=== PATIENT | female | born 1985 | race Caucasian/White ===

== ENCOUNTER 2016-04-07 12:49 | Observation (INO) | payer BC, MEDICAID ==
[2012-07-22 23:50] VITALS: O2SAT 99
[2016-04-07] MEDS ORDERED: SODIUM CHLORIDE 0.9% 500 ML 500 ML IV ONE (13:01)
[2016-04-07] MEDS ORDERED: SODIUM CHLORIDE 0.9% FLUSH 10 ML SOL IV SCH (13:15)
[2016-04-07 13:40] LABS: BASOPHILS % (AUTO) 1 % (0-3); EOSINOPHILS % (AUTO) 1 % (0-9); HEMATOCRIT 30 % (35-47); MEAN CORPUSCULAR HGB CONC 35.8 gm/dl (32.0-36.0); MEAN CORPUSCULAR VOLUME 88 fL (81-99); NEUTROPHILS % (AUTO) 80.7 % (37-80)
[2016-04-07 13:50] VITALS: PULSE 88; RESP 20
[2016-04-07 14:04] LABS: ALBUMIN 2.9 gm/dl (3.4-5.0); CALCIUM 8.4 mg/dl (8.5-10.1); POTASSIUM 3.9 mMol/L (3.5-5.1)
[2016-04-07 15:16] VITALS: BP 120/71; TEMP 98.2
== END 2016-04-07 15:00 | disposition home or self-care (01) ==
LOC: OB 12:49
PROVIDERS: ADMIT Family Medicine; ATTEND Family Medicine
DX: O47.1 False labor at or after 37 completed weeks of gestation (principal); Z3A.28 28 weeks gestation of pregnancy
CPT/HCPCS: 36415; 59025; 80053; 85025

== ENCOUNTER 2017-07-20 21:57 | Emergency (ER) | payer OTHER ==
[2017-07-20 22:06] VITALS: RESP 20; TEMP 97.3
[2017-07-20] MEDS ORDERED: BACITRACIN 500 U/GM OIN TOP ONE ×2 (22:25→22:28)
[2017-07-20] MEDS ORDERED: KETOROLAC TROMETHAMINE 30 MG/ML SOL IM ONE (22:27)
[2017-07-20] MEDS ORDERED: KETOROLAC TROMETHAMINE 30 MG/ML SOL ONE (22:29)
[2017-07-20] MEDS ORDERED: ONDANSETRON 4 MG ODT BU ONE (22:30)
[2017-07-20] MEDS ORDERED: ONDANSETRON 4 MG ODT ONE (22:31)
[2017-07-20 22:51] VITALS: BP 114/85; PULSE 82; O2SAT 99
== END 2017-07-20 22:40 | disposition home or self-care (01) ==
LOC: ED 21:57
DX: S61.111A Laceration without foreign body of right thumb with damage to nail, initial encounter (principal)
CPT/HCPCS: 96372; 99282; 99283; J1885; A6402; A9270-GY

== ENCOUNTER 2017-12-31 13:28 | Emergency (ER) | payer OTHER ==
[2017-12-31 13:39] VITALS: RESP 18
[2017-12-31 13:47] LABS: APPEARANCE,URINE Slightly Cloudy; BILIRUBIN,URINE NEGATIVE (NEGATIVE); COLOR,URINE Yellow; GLUCOSE, URINE (UA) NEGATIVE (NEGATIVE); KETONES,URINE NEGATIVE (NEGATIVE); LEUKOCYTE ESTERASE ,URINE NEGATIVE (NEGATIVE); NITRATE,URINE NEGATIVE (NEGATIVE); OCCULT BLOOD,URINE NEGATIVE (NEG-TRACE); PH,URINE 8.5; UROBILINOGEN,URINE 0.2 (0.2-1.0 EU)
[2017-12-31] MEDS: SODIUM CHLORIDE 0.9% FLUSH 10 ML SOL IV PRN ×2 (13:50→17:11)
[2017-12-31] MEDS ORDERED: HYDROMORPHONE 1 MG/ML SYRINGE ONE (13:54)
[2017-12-31 14:00] LABS: BACTERIA TRACE (< 1+); CRYSTALS NEGATIVE (0-3 AVE/HPF); EPITHELIAL CELLS 0-3 (SQUAMOUS); RBC,URINE NEGATIVE (0-3AV/HPF); WBC,URINE 0-2 (0-5AV/HPF)
[2017-12-31] MEDS ORDERED: HYDROMORPHONE 1 MG/ML SYRINGE IV ONE (14:00)
[2017-12-31] MEDS ORDERED: SODIUM CHLORIDE 0.9% 1000ML 1,000 ML IV ONE (14:00)
[2017-12-31] MEDS ORDERED: ONDANSETRON HCL 4 MG/2 ML SOL IV ONE (14:05)
[2017-12-31] MEDS ORDERED: ONDANSETRON HCL 4 MG/2 ML SOL ONE (14:08)
[2017-12-31 15:47] LABS: BASOPHILS % (AUTO) 1 % (0-3); EOSINOPHILS % (AUTO) 1 % (0-9); HEMATOCRIT 37 % (35-47); HEMOGLOBIN 12.4 gm/dl (12.0-15.5); LYMPHOCYTES % (AUTO) 23.3 % (10-50); MEAN CORPUSCULAR HEMOGLOBIN 30.4 pg (27.0-32.0); MEAN CORPUSCULAR HGB CONC 33.2 gm/dl (32.0-36.0); MEAN CORPUSCULAR VOLUME 92 fL (81-99); MONOCYTES % (AUTO) 7.9 % (0-12)
[2017-12-31 16:01] LABS: ALBUMIN 3.2 gm/dl (3.4-5.0); BILIRUBIN,TOTAL 0.5 mg/dl (0.2-1.0); CARBON DIOXIDE 27.5 mEq/L (21-32); CREATININE 0.55 mg/dl (0.60-1.00); POTASSIUM 3.4 mMol/L (3.5-5.1); TOTAL PROTEIN 5.9 gm/dl (6.4-8.2)
[2017-12-31 16:08] VITALS: O2SAT 98
[2017-12-31 16:24] VITALS: BP 132/88; PULSE 91; TEMP 96.7
[2017-12-31] MEDS ORDERED: KETOROLAC TROMETHAMINE 30 MG/ML SOL IV ONE (16:56)
[2017-12-31] MEDS ORDERED: KETOROLAC TROMETHAMINE 30 MG/ML SOL ONE (17:05)
== END 2017-12-31 17:26 | disposition home or self-care (01) ==
LOC: ED 13:28
DX: N94.89 Other specified conditions associated with female genital organs and menstrual cycle (principal)
CPT/HCPCS: 36415; 74176; 80053; 81001; 82150; 85025; 96365; 96374; 96375; 99283; 99285; J1885; J2405; J1170

== ENCOUNTER 2018-02-02 08:34 | Day surgery (SDC) | payer OTHER ==
[~2018-02-02 08:34] MED LIST: FENTANYL 100MCG/2ML SOL ONE; PROPOFOL 500 MG/50 ML EMU IV ONE
[2018-02-02] MEDS ORDERED: ONDANSETRON HCL 4 MG/2 ML SOL ONE (10:22)
[2018-02-02 10:25] VITALS: TEMP 97.6
[2018-02-02 10:53] VITALS: RESP 20; O2SAT 100
[2018-02-02 11:00] VITALS: BP 116/79; PULSE 74
== END 2018-02-02 11:06 | disposition home or self-care (01) ==
LOC: SURG 08:34
PROVIDERS: ATTEND Internal Medicine Gastroenterology
DX: R11.0 Nausea (principal); R19.7 Diarrhea, unspecified; R10.9 Unspecified abdominal pain; Q39.9 Congenital malformation of esophagus, unspecified; L53.8 Other specified erythematous conditions; K31.9 Disease of stomach and duodenum, unspecified
CPT/HCPCS: J2405; J3010; J2704